=== PATIENT | male | born 1945 | race Caucasian/White ===

== ENCOUNTER 2023-11-15 10:01 | Emergency (ER) | payer MEDICARE, BC ==
[~2023-11-15] VITALS: Ht 182.9 cm; Wt 95.0 kg
[2023-11-15 10:32] VITALS: BP 169/104
[2023-11-15] MEDS ORDERED: LIDOcaine HCl 1% (Local Anesth.) 20 ML VIAL STI STA (10:32)
[2023-11-15] MEDS ORDERED: LIDOcaine HCl 1% (Local Anesth.) 20 ML VIAL IM STA (10:33)
[2023-11-15] MEDS ORDERED: cefTRIAXone SODIUM 1 GM/VIAL SDV IM ONE (10:35)
[2023-11-15] MEDS ORDERED: POVIDONE IODINE 0.5 OZ/BTL TOP ONE (10:35)
[2023-11-15] MEDS ORDERED: Diph, Acellular Pertussis, Tet 0.5 ML/VIAL (Tdap) SDV IM ONE (10:35)
[2023-11-15 10:45] VITALS: BP 147/95
[2023-11-15 11:00] VITALS: BP 164/101
[2023-11-15 11:48] VITALS: BP 144/94
[2023-11-15 12:00] VITALS: BP 151/92
== END 2023-11-15 12:08 | disposition home or self-care (01) ==
LOC: ED 10:01
PROC: 0HQEXZZ Repair Left Lower Arm Skin, External Approach (ICD-10-PCS; principal; 2023-11-15)
DX: S51.812A Laceration without foreign body of left forearm, initial encounter (principal); E11.9 Type 2 diabetes mellitus without complications; W01.0XXA Fall on same level from slipping, tripping and stumbling without subsequent striking against object, initial encounter